=== PATIENT | female | born 2000 | race Caucasian/White ===

== ENCOUNTER 2025-02-19 12:52 | Emergency (ER) | payer OTHER ==
[~2025-02-19] VITALS: Ht 154.9 cm; Wt 99.1 kg
[2025-02-19 12:56] VITALS: BP 134/87; PULSE 99; RESP 18; TEMP 97.9; O2SAT 100
[2025-02-19] MEDS ORDERED: ALEN70TA65 PO (13:02)
[2025-02-19] MEDS ORDERED: CLOB60CR12 TP (13:02)
[2025-02-19] MEDS ORDERED: LANO113C6 TP (13:02)
[2025-02-19] MEDS ORDERED: OMEP-148 PO (13:02)
[2025-02-19] MEDS ORDERED: CALC-1238 PO (13:02)
[2025-02-19 15:11] LABS: PLATELET COUNT (AUTO) 431 K/uL (150-450); RED BLOOD CELL COUNT(AUTO) 4.78 MIL/uL (4.00-5.20); RED CELL DISTRIBUTION WIDTH 14.9 % (11.5-14.5); WHITE BLOOD COUNT (AUTO) 8.9 K/uL (4.5-11.0)
[2025-02-19 15:28] LABS: CALCIUM, TOTAL 8.9 mg/dL (8.8-10.5); CREATININE 0.61 mg/dL (0.60-1.30); GLOMERULAR FILTR. RATE CALC > 60 mL/min (>60); GLUCOSE,RANDOM 86 mg/dL (70-110); SODIUM SERUM 136 mmol/L (136-145); UREA NITROGEN, BLOOD 7 mg/dL (7-18)
[2025-02-19] MEDS ORDERED: PRED-554 PO (15:47)
== END 2025-02-19 15:57 | disposition home or self-care (01) ==
LOC: EMS 12:52
DX: L10.9 Pemphigus, unspecified (principal); Z79.899 Other long term (current) drug therapy
CPT/HCPCS: 80048; 82784; 84703; 85025; 86695; 86696; 87040; 99283